=== PATIENT | male | born 1985 | race Caucasian/White ===

== ENCOUNTER 2018-03-23 04:20 | Emergency (ER) | payer MEDICARE ==
[~2018-03-23] VITALS: Ht 177.8 cm; Wt 102.1 kg
[~2018-03-23 04:20] MED LIST: AMOX500 PO; HYDACE5 PO
[2018-03-23] MEDS ORDERED: OLAN10A MM ×2 (04:38→04:59)
[2018-03-23] MEDS ORDERED: CLOZ100 PO (04:39)
[2018-03-23] MEDS ORDERED: Citalopram HBr10 MG PO (04:39)
[2018-03-23] MEDS ORDERED: PROP10 PO (04:39)
[2018-03-23] MEDS ORDERED: Benztropine Mesy1 MG (04:39)
[2018-03-23] MEDS ORDERED: ATOR40TA PO ×2 (04:39→04:59)
[2018-03-23] MEDS ORDERED: Pantoprazole So40 MG PO ×2 (04:39→04:59)
[2018-03-23] MEDS ORDERED: Bactrim Ds Tab1 EACH PO (04:59)
[2018-03-23] MEDS ORDERED: CEPH500 PO (04:59)
[2018-03-23] MEDS ORDERED: Benztropine Mesy1 MG PO (04:59)
== END 2018-03-23 05:15 | disposition home or self-care (01) ==
LOC: ER 04:20
DX: L03.113 Cellulitis of right upper limb (principal); F15.10 Other stimulant abuse, uncomplicated; F41.9 Anxiety disorder, unspecified; F32.9 Major depressive disorder, single episode, unspecified; F20.9 Schizophrenia, unspecified; F17.200 Nicotine dependence, unspecified, uncomplicated; Z88.8 Allergy status to other drugs, medicaments and biological substances; Z79.899 Other long term (current) drug therapy
CPT/HCPCS: 99282

== ENCOUNTER 2019-07-26 14:53 | Emergency (ER) | payer SELFPAY ==
[~2019-07-26] VITALS: Ht 172.7 cm; Wt 90.7 kg
[~2019-07-26 14:53] MED LIST changes: +ATOR40TA PO; +Bactrim Ds Tab1 EACH PO; +Benztropine Mesy1 MG; +Benztropine Mesy1 MG PO; +CEPH500 PO; +CLOZ100 PO; +Citalopram HBr10 MG PO; +OLAN10A MM; +PROP10 PO; +Pantoprazole So40 MG PO
[2019-07-26] MEDS ORDERED: OLAN10A MM (15:10)
[2019-07-26] MEDS ORDERED: Citalopram HBr10 MG PO (15:10)
== END 2019-07-26 15:42 | disposition home or self-care (01) ==
LOC: ER 14:53
DX: Z76.0 Encounter for issue of repeat prescription (principal); F20.9 Schizophrenia, unspecified; F41.9 Anxiety disorder, unspecified; Z88.8 Allergy status to other drugs, medicaments and biological substances; Z88.5 Allergy status to narcotic agent; Z79.899 Other long term (current) drug therapy
CPT/HCPCS: 99281

== ENCOUNTER 2019-08-05 01:21 | Emergency (ER) | payer SELFPAY ==
[2019-08-05] MEDS ORDERED: Zofran4 MG PO (14:56)
== END 2019-08-05 01:55 | disposition left against medical advice (07) ==
LOC: ER 01:21
DX: Z53.21 Procedure and treatment not carried out due to patient leaving prior to being seen by health care provider (principal)

== ENCOUNTER 2019-08-05 13:30 | Emergency (ER) | payer OTHER ==
[~2019-08-05] VITALS: Ht 172.7 cm; Wt 90.7 kg
[2019-08-05 14:01] LABS: Source, Urine Clean Catch
[2019-08-05 14:07] LABS: BASOPHILS ABSOLUTE AUTO 0.01 K/mm3 (0.00-0.23); BASOPHILS PERCENT AUTO 0 % (0-2); Bilirubin, Urine Neg (Neg); Blood, Urine Neg (Neg); EOSINOPHILS PERCENT AUTO 0 % (0-6); Glucose Qualitative, Urine Neg (Neg); Hemoglobin 14.9 g/dL (13.5-17.5); IMMATURE GRAN ABSOLUTE AUTO 0.02 K/mm3 (0.00-0.10); IMMATURE GRAN PERCENT AUTO 0 % (0-1); Ketones, Urine 3+ (Neg); LYMPHOCYTES ABSOLUTE AUTO 1.16 K/mm3 (0.84-5.20); LYMPHOCYTES PERCENT AUTO 14 % (21-46); Leukocyte Esterase, Urine Neg (Neg); MONOCYTES ABSOLUTE AUTO 0.37 K/mm3 (0.16-1.47); MONOCYTES PERCENT AUTO 4 % (4-13); Mean Corpuscular HGB 31.2 pg (26.0-34.0); Mean Corpuscular HGB Conc 33.9 g/dL (31.5-36.5); Mean Corpuscular Volume 92 fL (80-100); Mean Platelet Volume 9.8 fL (9.1-12.4); NEUTROPHILS ABSOLUTE AUTO 6.76 K/mm3 (1.96-9.15); NEUTROPHILS PERCENT AUTO 81 % (41-73); Nitrite, Urine Neg (Neg); Platelet Count 415 K/mm3 (150-400); Protein, Urine 2+ (Neg); RDW Coefficient Variation 12.9 % (11.7-14.2); Red Blood Cell Count 4.77 M/mm3 (4.30-5.90); Specific Gravity, Urine 1.015 (1.003-1.022); Urobilinogen, Urine NORM (Normal); White Blood Cell Count 8.32 K/mm3 (4.00-11.30)
[2019-08-05 14:15] LABS: Appearance, Urine Clear (Clear); Color, Urine Yellow (P-Yellow)
[2019-08-05 14:17] LABS: Bacteria Rare /hpf; Mucus Light (0-Heavy); Red Blood Cells, Urine Not Seen /hpf (0-2); Squamous Epithelial Cells Rare /hpf (Few); White Blood Cells, Urine Rare /hpf (0-5)
[2019-08-05 14:23] LABS: Alanine Aminotransfer (ALT/SGP 111 U/L (12-78); Albumin, Blood 3.6 g/dL (3.4-5.0); Albumin/Globulin Ratio 0.7 (0.8-1.8); Alk Phos 85 U/L (50-136); Anion Gap 9 mmol/L (6-16); Aspartate Aminotrans (AST/SGOT 78 U/L (12-37); Bilirubin, Total 0.6 mg/dL (0.1-1.0); Blood Urea Nitrogen 13 mg/dL (8-24); Bun/Creatinine Ratio 16.6 (12.0-20.0); CO2, Blood 26 mmol/L (21-32); Calcium, Blood 9.4 mg/dL (8.5-10.1); Chloride, Blood 104 mmol/L (98-108); Creatinine, Blood 0.78 mg/dL (0.60-1.20); Globulin, Blood 5.1 g/dL (2.2-4.0); Glomerular Filtration Rate >60 (60-); Glucose, Blood 132 mg/dL (70-99); Potassium, Blood 3.7 mmol/L (3.5-5.5); Sodium, Blood 139 mmol/L (136-145); Total Protein, Blood 8.7 g/dL (6.4-8.2); U Amphetamine Screen Not Detected; U Barbituate Screen Not Detected; U Benzodiazapine Screen Not Detected; U Buprenorphine Screen Not Detected; U Cannabinoids Screen DETECTED; U Cocaine Screen Not Detected; U Methadone Screen Not Detected; U Methamphetamine Screen Not Detected; U Opiates Screen Not Detected; U Oxycodone Screen Not Detected; U Phencyclidine Screen Not Detected; U Propoxyphene Screen Not Detected
[2019-08-05 14:46] LABS: Influenza A Negative (NEGATIVE); Influenza B Negative (NEGATIVE)
[2019-08-05] MEDS ORDERED: Zofran4 MG PO (14:56)
== END 2019-08-05 15:29 | disposition home or self-care (01) ==
LOC: ER 13:30
PROVIDERS: Physician Assistant
DX: R11.2 Nausea with vomiting, unspecified (principal); M79.10 Myalgia, unspecified site; Z88.8 Allergy status to other drugs, medicaments and biological substances; Z88.5 Allergy status to narcotic agent; Z79.899 Other long term (current) drug therapy; F20.9 Schizophrenia, unspecified; F17.200 Nicotine dependence, unspecified, uncomplicated
CPT/HCPCS: 36415; 80053; 81001; 83690; 85025; 87804; 96361; 96374; 96375; 99283-25; J1100; J2405; J7030